=== PATIENT | female | born 1940 | race Caucasian/White ===

== ENCOUNTER 2017-10-08 17:11 | Inpatient (IN) | payer MEDICARE, MEDICAID ==
[~2017-10-08] VITALS: Ht 160 cm; Wt 48.9 kg
--- NOTE | ~2017-10-08 | PR ---
[place], [place] PROGRESS NOTE NAME: NEFTALI CHAMBERLAIN UNIT #: [id number] ROOM: 317 DOCTOR: ROWENA LYONS MD BIRTHDATE: [birth year] DOS: 10/14/2017 CHIEF COMPLAINT: "Oh good morning honey." SUMMARY OF THE VISIT: The patient was interviewed as she sat in a Kerrie chair in the dining area. As her breakfast was presented to her, she thanked me. She was pleasantly confused. She gave short simple responses. She was not agitated, however, and engaged readily in conversation. There was no sedation, somnolence or other side effects noted. MENTAL STATUS: She is alert and oriented to self. I doubt she realizes she is in the hospital and she is certainly not oriented to time. Mood for the most part is euthymic. Affect is appropriate. There are no symptoms of eyal or hypomania. There are no overt auditory or visual hallucinations noted. She does process extremely slow and at times there is a great lag in her response rate. She does have sparsity of thought. There is no spontaneity. Short term memory remains poor. PLAN: I will maintain her current psychotropic regimen as there does seem to be improvements without side effects. We will continue to engage in individual and valencia milieu activity with the ultimate plan to return to the least restrictive environment when psychiatrically stable. ROWENA LYONS MD CM:PNTRANS [id number] ROWENA LYONS MD 10/14/17 0850 interface
--- NOTE | ~2017-10-08 | PR ---
[place], [place] PROGRESS NOTE NAME: NEFTALI CHAMBERLAIN UNIT #: [id number] ROOM: 317 DOCTOR: ROWENA LYONS MD BIRTHDATE: [birth year] DOS: 10/13/2017 CHIEF COMPLAINT: "Help me get out of here. I want to stand up." SUMMARY OF THE VISIT: The patient was interviewed in the dining area where she reclined in a Kerrie chair awaiting breakfast. She again was fixated on me helping her get out of the Kerrie chair and get up on her feet. When I told her, I would not be able to help her, she nodded in approval and just quietly sat there. Nurses report a slight trend in improvement and that her behavior seems to be less problematic and she is responding better to redirection. She remains grossly confused and disoriented, however. MENTAL STATUS: She is alert and oriented to self only. I doubt she knows she is in the hospital and she is certainly not oriented to time. Mood does seem to be trending gradually to improvement. Affect is more appropriate. There is no hypomania or eyal. There are no overt auditory or visual hallucinations. No delusions were voiced. No paranoia seems present. She does process extremely slowly and has sparsity of thought. Short term memory is exceedingly poor. PLAN: Valproic acid level is barely therapeutic at 53.2, but I will maintain her dose at its current level. Maintain her current dose of Exelon patch at 13.3 mg daily and Namenda at 10 mg b.i.d. Continue to engage her in individual and valencia milieu activity with the ultimate plan to discharge to the least restrictive environment when psychiatrically stable. ROWENA LYONS MD CM:PNTRANS 0 2 ROWENA LYONS MD 10/13/1741 interface
--- NOTE | ~2017-10-08 | PR ---
[place], [place] PROGRESS NOTE NAME: NEFTALI CHAMBERLAIN UNIT #: [id number] ROOM: 317 DOCTOR: ROWENA LYONS MD BIRTHDATE: [birth year] DOS: 10/12/2017 CHIEF COMPLAINT: "I want out of this honey, can you get me out of here?" SUMMARY OF THE VISIT: The patient was interviewed as she reclined in a Kerrie chair in the group therapy room. She was very fixated on attempting to stand up and get on her own two feet. She did redirect and calmed as I sat next to her and engaged her in conversation. Her conversation with me for the most part was superficial. At times, her responses were totally inappropriate. Nurses report she continues to be episodically confused and combative and is very hard to redirect. MENTAL STATUS: She is alert and oriented to person. I doubt if she realizes she is in the hospital and she is certainly not oriented to time. Mood still is rather labile and affect is inappropriate. Her responses are short, simple, very derailed and fragmented. There are no overt auditory hallucinations noted. It is unclear if she is experiencing significant delusions or not. Short term memory is exceedingly poor. PLAN: I will maintain her current dose of Exelon patch at 13.3 mg a day and at this time maximize out the Namenda dose to 10 mg b.i.d. I will likewise increase Celexa from 10 to 20 mg at bedtime to impact on decreasing her sexual behavior as well as decreasing her agitation and aggression. We will engage in individual and valencia milieu activity with the ultimate plan to return to the least restrictive environment when psychiatrically stable. ROWENA LYONS MD CM:PNTRANS [id number] ROWENA LYONS MD 10/12/17 1017 interface
--- NOTE | ~2017-10-08 | DS ---
[place], [place] DISCHARGE SUMMARY NAME: NEFTALI CHAMBERLAIN UNIT #: [id number] ROOM: 317 DOCTOR: ROWENA LYONS MD BIRTHDATE: [birth year] DOS: 10/16/2017 CHIEF COMPLAINT: "Yes it is over there, yes hazel hazel yes." HISTORY OF PRESENT ILLNESS: This is a 77-year-old white female who is a resident of [facility]. The patient was admitted to the [facility] unit at [facility] due to increased behavioral issues. The patient has become increasingly sexually inappropriate with both men and women. She has been found stroking and rubbing them inappropriately. Attempts to redirect her have been met with her becoming increasingly agitated. She has attempted to put her hands down male residents' pants. She has also been masturbating publicly. She has been very volatile and hard to redirect. She has not been sleeping well as well with difficulty falling asleep, sleep continuity disturbance and technical account representative awakening. The patient has been increasingly confused and disoriented and as mentioned previously, has been very hard to redirect and her behavior has escalated to the point where she is putting both herself and others at risk. Because of the significant behavioral issues, she is admitted now to rule out organic factors, to stabilize on medication with the ultimate plan to return back to [facility] when stable. PAST MEDICAL HISTORY: Remarkable for coronary artery disease, GERD, hyperlipidemia, hypertension, vitamin B12 deficiency and vitamin D deficiency. SUMMARY OF HOSPITAL COURSE: The patient was admitted to the unit where she was immediately started on Celexa 10 mg a day. Celexa was utilized to decrease both libido as well as decrease agitation. Her Exelon patch was increased from 4.6 to 9.5 mg a day and ultimately stabilized at its maximum dose of 13.3 mg a day. Likewise, this was augmented with Namenda, which was rapidly titrated up to its maximum dose of 10 mg twice daily. She did tolerate the medicines well and continued during the early part of her stay to have inappropriate intrusive behavior. Celexa was ultimately increased then to 20 mg a day with good affect. Because of her impulsivity, Depakote was added to decrease her impulsivity and decrease her mood lability. Depakote was started at 250 mg 3 times a day; however, on October 13, a level was mildly therapeutic at only 53.2 and because she was still exhibiting some intrusive behavior and impulsivity, the dose was increased to 250 mg twice daily and 500 mg at bedtime. She tolerated the increase well and with this increase did seem to have a significant improvement in her overall level of being able to redirect. The patient remained grossly confused throughout her stay, but was able to be redirected more readily without agitation or aggression. Her sexually inappropriate behavior completely abated. The patient tolerated the medication regimen well and was discharged back to [facility] on October 16. MENTAL STATUS AT DISCHARGE: The patient was alert and oriented to person, not to place or time. Mood was significantly trending towards euthymia. Affect was much more appropriate. There are no symptoms of eyal or hypomania. There are no auditory or visual hallucinations. No delusions, no paranoia. Short-term memory was poor, intermediate, and long-term were relatively intact. [place], [place] DISCHARGE SUMMARY NAME: NEFTALI CHAMBERLAIN UNIT #: [id number] ROOM: 317 DOCTOR: ROWENA LYONS MD BIRTHDATE: [birth year] FINAL DIAGNOSES ON DISCHARGE: Major depression, recurrent and impulse control disorder, not otherwise specified. DISPOSITION: The patient is being discharged back to [facility]. I will follow her upon her return to that facility. ROWENA LYONS MD CM:ESTRADA 1 ROWENA LYONS MD 10/16/17 0835 interface
--- NOTE | ~2017-10-08 | PR ---
[place], [place] PROGRESS NOTE NAME: NEFTALI CHAMBERLAIN UNIT #: [id number] ROOM: 317 DOCTOR: ROWENA LYONS MD BIRTHDATE: [birth year] DOS: 10/10/2017 CHIEF COMPLAINT: "Oh hi there honey!" SUMMARY OF THE VISIT: The patient was interviewed as she was resting quietly in bed. She did awake and engaged in brief superficial conversation. She thanked me for visiting. Otherwise, she tended to be somewhat derailed and was not able to fully grasp my conversation. She seemed rather perplexed and bewildered but was not agitated in any way. Nurses report similar behavior and that she is grossly confused, but has not been engaging in the sexually inappropriate behavior that was so prevalent at her long-term care facility. She seems to be outwardly tolerating the current medication regimen well and I see no adverse events due to the medications themselves. MENTAL STATUS: She is alert and oriented to person. It is doubtful if she realizes she is in the hospital and she is not oriented to time. Mood does seem to be fairly euthymic. Affect appropriate. She is rather disjointed and confused in her responses, often times responding inappropriate to the questions asked of her. There was no eyal or hypomania, likewise there were no overt auditory or visual hallucinations noted. No delusions or paranoia. She does process slowly and has thoughts and short term memory is exceedingly poor. PLAN: I will increase Namenda from 5 mg b.i.d. to 10 mg in the morning and 5 mg at bedtime with an ultimate target dose of 10 mg b.i.d. in mind. I will maximize the dose of Exelon patch now from 9.5 to 13.3 mg a day in order to impact positively on ADL, behavior and cognition. We will engage her in individual and valencia milieu activity with the plan to return back to [facility] when psychiatrically stable. ROWENA LYONS MD CM:PNTRANS [id number] ROWENA LYONS MD 10/10/17 1254 interface
--- NOTE | ~2017-10-08 | PR ---
[place], [place] PROGRESS NOTE NAME: NEFTALI CHAMBERLAIN UNIT #: [id number] ROOM: 317 DOCTOR: ROWENA LYONS MD BIRTHDATE: [birth year] DOS: 10/15/2017 CHIEF COMPLAINT: "Good morning." SUMMARY OF THE VISIT: The patient was interviewed in the dining area where she was reclining in a Kerrie chair waiting for her breakfast tray. She was alert, oriented to self only. As I approached, she did engage in superficial conversation. She offered no complaints. She was fairly pleasant. Her responses tended to be short and simple, at times inappropriate. There was no incidence of agitation or aggression or mood lability. She also did not exhibit any side effects from the medications themselves. MENTAL STATUS: She is alert and oriented to self at least. It is unclear if she realizes she is in the hospital and she is not oriented to time. Mood does seem to be gradually trending towards euthymia and affect is more appropriate. There are no symptoms of eyal or hypomania. There are no overt auditory or visual hallucinations. She does process conversation very slowly and has a tendency to have sparse thoughts. Short term memory is poor. PLAN: I will maintain her current psychotropic regimen. I will recheck a valproic acid level in the a.m. to ensure that it is therapeutic. We will plan to discharge to the least restrictive environment when psychiatrically stable. ROWENA LYONS MD CM:PNTRANS [id number] ROWENA LYONS MD 10/15/17 1009 interface
--- NOTE | ~2017-10-08 | WRIGHTHP ---
[place], [place] PATIENT HISTORY AND PHYSICAL EXAM NAME: NEFTALI CHAMBERLAIN UNIT #: [id number] ROOM: [facility] DOCTOR: ROWENA LYONS MD BIRTHDATE: [birth year] DOS: 10/09/2017 CHIEF COMPLAINT: "Yes it is over there, hazel, hazel, yes." HISTORY OF PRESENT ILLNESS: This is a 77-year-old white female who was admitted here from [facility]. The patient has had increased behavioral issues. She has been sexually inappropriate with both men and women. She has been found stroking and rubbing them inappropriately. She has attempted to put her hands down individuals' pants. She has also been masturbating publicly. She has also been increasingly volatile and difficult to redirect. Her sleep has been disturbed with difficulty falling asleep, sleep continuity disturbance and preventive medicine officer awakening. She has been increasingly confused and disoriented. She is admitted now to rule out organic factors to attempt to stabilize on medication with the ultimate plan to return back to [facility]. PAST MEDICAL HISTORY: Remarkable for coronary artery disease, GERD, hyperlipidemia, hypertension, vitamin B12 deficiency, vitamin D deficiency. MENTAL STATUS: The patient is alert and oriented to self only. This morning, she was nonsensical and very disoriented. Her responses had nothing to do with the questions asked of her and she tended to ramble. At times, it was word salad. I could not fully test memory, but she does seem to be grossly confused. DIAGNOSIS: Major depression, recurrent with psychotic features and impulse control disorder. PLAN: I will go ahead and start Celexa 10 mg at bedtime to decrease libido. I will increase Exelon patch from 4.6 to 9.5 mg a day in an effort to impact ADLs, behavior and cognition. Maintain Namenda at this point, but I will titrate both of these drugs up to their maximum doses. We will maintain Depakote at this point to decrease mood lability and check a valproic acid level over the weekend. We will engage in individual and valencia milieu activity with the plan to return back to [facility] when stable. [place], [place] PATIENT HISTORY AND PHYSICAL EXAM NAME: NEFTALI CHAMBERLAIN UNIT #: [id number] ROOM: 317 DOCTOR: ROWENA LYONS MD BIRTHDATE: [birth year] ROWENA LYONS MD CM:HISPHYS:PATIENT HISTORY AND PHYSICAL EXAMINATION [id number] ROWENA LYONS MD 10/09/17 1146 interface
[2017-10-08] MEDS ORDERED: VITAMIN C500 M4 PO (17:42)
[2017-10-08] MEDS ORDERED: ASPIRIN CHEWABL81 MG PO (17:44)
[2017-10-08] MEDS ORDERED: ATORVASTATIN CA10 M1 PO (17:45)
[2017-10-08] MEDS ORDERED: DEPAKOTE SPRIN125 MG PO (17:48)
[2017-10-08] MEDS ORDERED: Depakote Sprin125 MG PO (17:50)
[2017-10-08] MEDS ORDERED: EXELON1 EACH T (17:51)
[2017-10-08] MEDS ORDERED: NAMENDA-14 PO (17:52)
[2017-10-08] MEDS ORDERED: OMEPRAZOLE D/R20 MG PO (17:52)
[2017-10-08] MEDS ORDERED: OYSTER SHELL C1 EAC1 PO (17:54)
[2017-10-08] MEDS ORDERED: KLOR-CON M2020 ME1 PO (17:56)
[2017-10-08] MEDS ORDERED: VITAMIN B-12500 MC3 SL (17:59)
[2017-10-08] MEDS ORDERED: VITAMIN D-32000 UNI1 PO (18:00)
[2017-10-08] MEDS ORDERED: MIRALAX POWDER255 G1 PO (18:01)
--- NOTE | 2017-10-08 20:00 | NUR ---
NEFTALI CHAMBERLAIN a 77 year old F admitted via wheel chair from the ADMITTING as a voluntary admission. Arrived on unit at 1999. ALLERGIES: MORPHINE. Vital signs are: 98.6-95-18 116/88. The POA,Tutu Chamberlain, gave verbal consent for the following forms with stated understanding: Authorization For The Release of Medical Information, Clothing List, Consent to Voluntary Admission and Hospitalization, Consent and Release Forms/Receipt of Rights, Acknowledgement of Advance Directive Information, Behavioral Health Consent Form, and Informed Consent of Medications. Admitted under the services of Dr. SERENA FERGUSON,[facility]. A search was conducted and hazardous articles were removed. Client was oriented to the unit. CRISTOPHER DAY
[2017-10-08 20:23] VITALS: BP 116/88
--- NOTE | 2017-10-08 20:45 | NUR ---
UNABLE TO COMPLETE ASSESSMENT DUE TO PTS COGNITIVE IMPAIRMENT. PT UNABLE TO ANSWER QUESTIONS. NONSENSICAL SPEECH NOTED. PT IS CONFUSED AND UNABLE TO STATE HER OWN NAME. INTERACTIVE WITH PEERS. PT WILL ATTEMPT TO TALK TO A NEARBY PEER ABOUT NONSENSICAL SUBJECTS. SOFT SPOKEN AND SLURRED AT TIMES. WILL ALSO ATTEMPT TO GRAB CLOTHES OR CHAIR OF A NEARBY PEER. GAIT UNSTEADY. PT ASSISTED X2 STAFF. RESPIRATIONS EASY AND NON LABORED. Q15 MINUTE SAFETY CHECKS INITIATED AND FALL PRECAUTION INITIATED. UNABLE TO COMPLETE MINI MENTAL EXAM, CRISIS PREVENTION PLAN, DEPRESSION AND SUICIDE ASSESSMENTS. MEDICATION COMPLIANT WITHOUT DIFFICULTY. SEE [facility] FLOWS[facility] FOR SPECIFIC MONITORING.
[2017-10-08] MEDS ORDERED: THERA M PLUS T1 EACH PO (21:18)
--- NOTE | 2017-10-08 21:39 | NUR ---
DR SERRANO RETURNED CALL AND EXPLAINED TO CALL HOSPITALIST CELL NUMBER ONE FOR NEW ADMITS. EXPLAINED TO DR SERRANO WHEN ANOTHER NURSE DID THIS LAST WEEK WE WERE TOLD TO CALL RESIDENT HOSPICE COMMUNITY LIAISON.
--- NOTE | 2017-10-08 21:39 | NUR ---
CALL MADE TO RESIDENT AUTO PAINTER. DR SERRANO ANSWERED PHONE. UPDATED DR SERRANO OF PT ARRIVAL ON TO UNIT. DR SERRANO STATED TO PUT CONSULT UNDER DR LUNA.
--- NOTE | 2017-10-08 22:00 | NUR ---
DR SERRANO AND DR Greg LEWIS WAS ON UNIT. EXPLAINED TO DR LEWIS ABOUT CALLING DR LUNA AND BEING TOLD TO CALL RESIDENT AND DR LEWIS STATED TO CALL HOSPITALIST CELL NUMBER 1. DR SERRANO ASSESSED PT AT THIS TIME.
[2017-10-08 23:09] VITALS: BP 116/88
--- NOTE | 2017-10-09 02:25 | NUR ---
WOUND ASSESSMENT COMPLETED. NO AREAS OF CONCERN NOTED. BRUISING NOTED TO RIGHT FORARM AND AROUND RIGHT EYE. THIS IS REPORTEDLY FROM A FALL AT THE NURSING FACILITY PRIOR TO ADMISSION.
--- NOTE | 2017-10-09 03:03 | NUR ---
24 HR chart check completed.
--- NOTE | 2017-10-09 06:50 | NUR ---
PT DID NOT SLEEP THIS SHIFT. NO S/S OF DISTRESS NOTED.
[2017-10-09 07:39] VITALS: BP 140/82
[2017-10-09 07:48] LABS: ALBUMIN 3.9 gm/dl (3.1-4.5); BUN 25 mg/dl (7-24); CHLORIDE 111 mmol/L (98-107); CHOLESTEROL 155 mg/dL (<200); CREATININE 0.67 mg/dL (0.55-1.02); POTASSIUM 3.6 mmol/L (3.5-5.1); SGOT/AST 22 IU/L (3-35); SGPT/ALT 28 U/L (12-78); SODIUM 146 mmol/L (136-145); TOTAL PROTEIN 7.1 gm/dL (6.4-8.2); TRIGLYCERIDES 59 mg/dl (<150); VLDL CHOLESTEROL 12 mg/dL (6-40)
[2017-10-09 07:49] LABS: ALKALINE PHOSPHATASE 76 U/L (45-117); HDL CHOLESTEROL 67 mg/dl (40-60); LDL CHOLESTEROL 76 mg/dL (9-159)
--- NOTE | 2017-10-09 08:48 | NUR ---
SW faxed updated info for facility to update "changhe in condition" form.
--- NOTE | 2017-10-09 09:05 | NUR ---
PHYSICAL THERAPY PAtient evaluatd on 3, full evaluation to follow. Continue with PT as per plan of care with fall, unit three, mod (A) x 2 + and alarm precautions. Return to prior living facility with PT prn to return to PLOF. PAtient is mdoerate coplexity via chart review, tests and and evaluation: [id number]. Thank you for this referral; Sarah Singer,PT
--- NOTE | 2017-10-09 11:19 | NUR ---
Occupational Therapy evaluation completed on 3 with full eval to follow. Precautions include impaired cognition, difficulty following simple 1 step commands, moderate complexity level 39184, fall risk, positioned in recliner w/ laptray. Recommend OT per POC to address feeding, gromin,xfers, sit balance and w/c mobilty with SNF upon d/c. Thank you for this referral. Tiffanie Kline OTR/l
--- NOTE | 2017-10-09 13:01 | NUR ---
Goals/Exercise/Reminiscing Patient was in attendence for group but did not participate. Patient was very confused trying to get out of her chair and asking this AC for help to get out. Patient not easily redirected if at all. Patient showed no sign of aggression while in group
--- NOTE | 2017-10-09 15:33 | NUR ---
PT IS PLEASANTLY CONFUSED PER USUAL. SPEECH IS NON SENSICAL DURING INTERACTIONS WITH PATIENT. NO AGGRESSIVE OR COMBATIVE BEHAVIORS NOTED. MEDICATION COMPLIANT WITH MUCH ENCOURAGEMENT.
[2017-10-09 15:38] LABS: BILIRUBIN NEGATIVE (NEGATIVE); BLOOD NEGATIVE (NEGATIVE); CLARITY CLEAR (CLEAR); COLOR YELLOW (YELLOW); GLUCOSE NEGATIVE (NEGATIVE); KETONE NEGATIVE (NEGATIVE); LEUKO ESTERASE NEGATIVE (NEGATIVE); NITRITE NEGATIVE (NEGATIVE); PH 5.5 (5.0-9.0); SPECIFIC GRAVITY 1.025 (1.005-1.030); UROBILINOGEN 0.2 E.U./dl (0.2-1.0)
[2017-10-09 15:49] LABS: WBC 0-2 wbc/hpf (0-5)
[2017-10-09 15:50] LABS: BACTERIA TRACE
[2017-10-09 20:10] VITALS: BP 129/62
--- NOTE | 2017-10-09 21:30 | NUR ---
PATIENT COOPERATIVE AND MEDICATION COMPLIANT. PATIENT CONTINUES FALL AND SEIZURE PRECAUTIONS. PATIENT CONFUSED. NO HALLUCINATIONS OR DELUSIONS. NO HOMICIDAL OR SUICIDAL IDEATIONS. PATIENT IN GERICHAIR AND NO SEXUAL PREOCCUPATION OBSERVED.
--- NOTE | 2017-10-10 06:33 | NUR ---
24 HR chart check completed.
[2017-10-10 07:56] VITALS: BP 118/63
--- NOTE | 2017-10-10 12:00 | NUR ---
PATIENT HAS BEEN SLEEPING MOST OF THE SHIFT. AWAKE FOR LUNCH, ENCOURAGED PO INTAKE WITH MINIMAL EFFECT. TAKING FLUIDS WELL. MT FEEDING PT, ATE 5% OF LUNCH. SPEECH IS NON SENSICAL. ACUTE CONFUSION NOTED WITH ST/LT MEMORY DEFICITS. REFUSED ALL MEDICATIONS AFTER MULTIPLE ATTEMPTS. UNABLE TO COMPLETE MEDICATION EDUCATION D/T CONFUSION. NO HALLUCINATIONS, DELUSIONS, OR BEHAVIORS NOTED. MOOD IS STABLE WIT FLAT AFFECT. SEE [facility] FLOWSHEET FOR SPECIFIC MONITORING. NO SEXUALLY INAPPROPRIATE BEHAVIORS. CALM AND COOPERATIVE WITH STAFF AND HOC. ALL NEEDS ANTICIPATED BY STAFF.
--- NOTE | 2017-10-10 16:58 | NUR ---
PATIENT TOOK EVENING MEDS WITH MUCH ENCOURAGEMENT. INCREASED CONFUSION NOTED. NON SENSICAL SPEECH.
[2017-10-10 20:00] VITALS: BP 136/61
--- NOTE | 2017-10-10 20:30 | NUR ---
UNABLE TO SIT STILL IN CHAIR. TEARING UP MAGAZINES AND UNABLE TO REDIRECT. TALKING TO UNSEEN PERSONS. REACHING OUT AT STAFF AND PEERS THAT WALK BY TRYING TO TOUCH THEM. MEDICATIONS GIVEN WITH MUCH ENCOURAGEMENT. WORDS GARBLES WITH ONLY A FEW THAT ARE UNDERSTANDABLE. WILL MONITOR
--- NOTE | 2017-10-11 06:00 | NUR ---
aggrissive with am care. punching, scratching and kicking staff. assist of 4 to get her changed and dressed
--- NOTE | 2017-10-11 06:44 | NUR ---
spit out over half of her medications. swinging at staff.
[2017-10-11 07:53] VITALS: BP 132/61
--- NOTE | 2017-10-11 16:02 | NUR ---
PT IS ALERT AND CONFUSED THIS SHIFT WITH PERIODS OF RESTLESSNESS. SPEECH IS NON SENSICAL DURING INTERACTIONS WITH PT. NO HALLUCINATIONS OR DELUSIONS NOTED. UNABLE TO COMPLETE FULL MENTAL STATUS ASSESSMENT D/T CONFUSION AND SPEECH. MEDICATION COMPLIANT WITH MUCH ENCOURAGEMENT. NAPS INTERMITTENTLY THROUGHOUT THE SHIFT. WILL CONTINUE Q15 MIN OBSERVATION CHECKS PER ORDERS. NO COMBATIVE BEHAVIORS NOTED.
--- NOTE | 2017-10-11 16:57 | NUR ---
REFUSED EVENING MEDICATIONS AT THIS TIME.
[2017-10-11 20:00] VITALS: BP 113/68
--- NOTE | 2017-10-11 20:48 | NUR ---
HITTING AND PUNCHING AT STAFF DURING MEDICATION PASS. TOOK APPROX 1/2 OF ORDERED MEDICATIONS. REFUSED MIRALAX. WORD SALAD DURING ANGRY OUTBURST. WILL CONTINUE EMOTIONAL SUPPORT
--- NOTE | 2017-10-11 21:00 | NUR ---
ACTIVELY HALLUCINATING. CALLING AND REACHING FOR UNSEEN PERSONS. ANYTIME STAFF COMES CLOSE TO CLIENT SHE ATTEMPTS TO PINCH AND SCRATCH. KEEPING SAFE DISTANCE.
--- NOTE | 2017-10-11 22:22 | NUR ---
REMAINS UP IN CHAIR INCREASED AGGRESSION NOTED WHEN APPROACHED. UNABLE TO PROVIDE PM OR ORAL CARE AT THIS TIME
--- NOTE | 2017-10-11 22:58 | NUR ---
REMAINS AWAKE IN CHAIR. LESS AGGITATED AND SMILING MORE. WORD SALAD CONTINUES
--- NOTE | 2017-10-12 01:31 | NUR ---
24 HR chart check completed.
--- NOTE | 2017-10-12 04:05 | NUR ---
CAT NAPPING THROUGHOUT SHIFT, HAS NOT SLEPT MORE THAN 20 MINUTES AT A TIME. REMAINS IN VIEW OF NURSING STATION
--- NOTE | 2017-10-12 05:03 | NUR ---
COMBATIVE AND ARGUMENTATIVE WITH COASTAL TUG MATE DURING LAB DRAW. ASSIST OF 2 TO PREVENT INJURY TO CLIENT AND STAFF
--- NOTE | 2017-10-12 05:20 | NUR ---
UNABLE TO SHOWER OR BED BATH DUE TO INCREASED AGGITATION AND VIOLENCE
[2017-10-12 05:29] LABS: BUN 27 mg/dl (7-24); CHLORIDE 110 mmol/L (98-107); CREATININE 0.61 mg/dL (0.55-1.02); SODIUM 144 mmol/L (136-145)
--- NOTE | 2017-10-12 06:16 | NUR ---
AM MEDICATIONS HELD DUE TO INCREASED AGGITATION
--- NOTE | 2017-10-12 08:07 | NUR ---
PHYSICAL THERAPY Mamie seen this AM 1:1 for her physical therapy session. Pt was up in her gerichair. Wheeled Pt out into her richardson and with much verbal cueing to transfer sit to stand and up on her third try standing with MAX A X 1. Pt would not gait at this time, sit/stand X 3, MAX A X 1. Last time gait 42' X 1, MOD/MAX A X 1, with much verbal cueing for gait balance safety, Pt back up in her gerichair, tray up and taken up for her breakfast. Yefriher very hard to hear and understand and not understand cues for her Ex at this visit. MATT BOONE SAWDUST MACHINE OPERATOR.
--- NOTE | 2017-10-12 08:10 | NUR ---
10/09/17 Afternoon Coping Skills Patient did attend group but did not participate. Patient was confused but not aggressive during group
[2017-10-12 08:18] VITALS: BP 151/77
--- NOTE | 2017-10-12 09:41 | NUR ---
PATIENT SEATED IN W/C IN DAY ROOM. PATIENT REPEATEDLY VERBALIZING "HEY" AND REACHING OUT. UNABLE REDIRECT. WILL TRY BACK LATER DATE. SHONDA STAHL/Shakir
--- NOTE | 2017-10-12 10:15 | NUR ---
Mamie has been noted to exhibit some irritability and restlessness this morning. When attempting to administer medications she pushed staff away and spit them out. Attempted to administer po ativan as prescribed prn, however, she was unreceptive to taking it. Confusion is noted and she is oriented to person only. Attempted to strike milieu this morning when attempts were made to feed her. Will continue to monitor and encourage compliance.
--- NOTE | 2017-10-12 12:20 | NUR ---
PATIENT SEEN 1:1 OT THIS DATE 15 MINUTES. PATIENT IDENTIFIED BY NAME AND DATE OF WRIST BAND. PATIENT COMPLETED FEEDING DEPENDENT WITH LIMITED PARTICIPATION.PATIENT UNABLE TO FOLLOW SIMPLE ONE STEPS COMMANDS AND UNABLE IDENTIFY PROPER USE UTENSILS AND CUPS. PATIENT DEOMONSTRATED INCREASE PARTICIPATION FINGER FOODS MAX A HOWEVER REFUSED FOOD LOADED ON UTENSILS LIMITED INTAKE USE CUP/STRAW. SHONDA VITO FAVIO/Shakir
--- NOTE | 2017-10-12 13:26 | NUR ---
Goals/Exercise/Positive Thoughts & Affirmations Patient was in attendence during group but did not participate. For the most part of group patient was asleep
--- NOTE | 2017-10-12 14:20 | NUR ---
Continues to exhibit restlessness and is not receptive to verbal intervention provided by staff. Frequently attempts to grab @ staff and visitors and is not receptive to direction from staff. Marked confusion is noted and she is oriented to person only. Attempts to administer medications are unsuccessful as she continues to turn her head away and spit in spite of education provided by staff. During frequent 1:1 interactions, she responds irrelevantly and has marked difficulty processing any information. No overt s/s of sensory disturbances are noted. Appetite is poor and she has required much encouragement to maintain an adequate fluid and nutritional intake. Requires maximal assistance with ADL's and is unable to complete simple tasks. Incontinuent of urine and stool. Hygiene measures were provided by staff. Refer to [facility] flowsheet for specific monitoring.
--- NOTE | 2017-10-12 15:24 | NUR ---
SW missed pt son's Tutu pc, attempted to reach Tutu again, left vm. Did leave message about Dr. clark looking at pt. returning to [facility] by end of week. Also notified jesus Jackson tentative d/c date. no pre-cert needed.
--- NOTE | 2017-10-12 15:30 | NUR ---
Positive Self-Talk Patient did not attend group this afternoon. Patient was asleep in her room
--- NOTE | 2017-10-12 17:51 | NUR ---
Anxiety level and restlessness noted to increase as well as agitation. Mamie previously spit out po ativan when this was offered. Ativan 1 mg IM was administered per policy for IM injections @ 1330. Ativan effective in calming Mamie. She has been noted to nap in gerichair and restlessness and agitation have subsided.
[2017-10-12 20:00] VITALS: BP 104/83
--- NOTE | 2017-10-12 20:17 | NUR ---
TRIED TO GET CLIENT TO EAT PUDDING TO SEE IF SHE WOULD TAKE MEDICATION. CLIENT SPIT OUT PUDDING. WILL TRY AGAIN LATER
--- NOTE | 2017-10-12 20:57 | NUR ---
PLACED IN BED FOR COMFORT BED AND BODY ALARM IN PLACE.
--- NOTE | 2017-10-12 23:45 | NUR ---
REFUSED PM CARE INCLUDING ORAL CARE
--- NOTE | 2017-10-13 03:32 | NUR ---
24 HR chart check completed.
[2017-10-13 08:02] VITALS: BP 143/54
--- NOTE | 2017-10-13 09:41 | NUR ---
PATIENT SEATED IN PIERRE CHAIR REACHING OUT AND UNABLE TO FOLLOW SIMPLE STEP COMMANDS. MILIEU REPORTS PATIENT WAS AGGITATED THIS MORNING. SHONDA SOTO
--- NOTE | 2017-10-13 10:14 | NUR ---
ISABEL rec'd pc from pt's son, Tutu, notified him of possible d/c or thursday. Tutu states he was in to see pt. last nite. no questions/concerns from son to SW.
--- NOTE | 2017-10-13 11:40 | NUR ---
PHYSICAL THERAPY Mamie seen this AM 1:1 for her therapy session and just not as good as yesterday therapy session. Pt was up in the day room in her gerichair and wheeld out in to her richardson. With "much" verbal cueing for transfer from sit to stand with MAX A X 1, today X 3 standing sessions with MAX A X 1, with Mamie only taking 2-3 steps and would go down with this. I dont know if Pt was medicated and just out of it this morning session. Pt wheeled back to the day room, body alarm on, tray up. MATT BOONE TENTERING MACHINE OFF BEARER.
--- NOTE | 2017-10-13 11:52 | NUR ---
Holiday remenissing, orientation and goals Patient present in activity room however unable to engage patient due to confusion. Patient tearful or sleeping throughout group.
--- NOTE | 2017-10-13 15:13 | NUR ---
Coping skills Patient in activity room during group however did not actively participate. Patient reaching out at other and attempting to grab items from them. Patient moved to quieter area.
--- NOTE | 2017-10-13 17:52 | NUR ---
PT ALERT TO PERSON ONLY. PT REFUSED AM MEDS, SPITTING THEM OUT, UNABLE TO PROVIDE MED EDUCAITON D/T INCREASED CONFUSION. NO HALLUCINATIONS OR DELUSIONS NOTED. NO SUICIDAL/HOMICIDAL IDEATIONS NOTED. PT ANGRY/IRRITABLE AT TIMES, BECOMING COMBATIVE WITH CARE AND MED ADMINISTRATION. PT INCONTINENT OF BOWEL AND BLADDER, CARE PROVIDED NEEDED. PLAN IS TO ENCOURAGE MED COMPLIANCE, MONITOR PT BEHAVIORS ON Q156 MIN SAFETY CHECKS.
[2017-10-13 20:14] VITALS: BP 106/74
--- NOTE | 2017-10-14 03:05 | NUR ---
24 HOUR CHART CHECK COMPLETED.
--- NOTE | 2017-10-14 05:05 | NUR ---
PATIENT IS ALERT AND CONFUSED THIS SHIFT WITH PERIODS OF RESTLESSNESS. FREQUENTLY ATTEMPTS TO PULL OFF ALARM, NEEDING CONSTANT REDIRECTION FROM STAFF. PT IS ANGRY AND IRRITABLE AT TIMES. NO COMBATIVE BEHAVIOR NOTED SO FAR THIS SHIFT. SPEECH IS NON SENSICAL DURING INTERACTIONS WITH PATIENT. NO HALLUCINATIONS OR DELUSIONS NOTED. REFUSED HS DOSE OF MIRALAX AFTER X3 ATTEMPTS. UNABLE TO PROVIDE MED EDUCATION D/T CONFUSION. COMPLAINT WITH REMAINING HS MEDICATIONS WITHOUT DIFFICULTY WHEN CRUSHED AND PLACED IN ICE CREAM. OBSERVED ON Q 15 MIN CHECKS TO HAVE SLEPT THROUGHOUT THE NIGHT WITH NO AWAKENINGS. NO PHYSICAL COMPLAINTS VOICED. PATIENT CURRENTLY IN BED WITH EYES CLOSED. RESPIRATIONS EASY AND REGULAR NO SIGNS OR SYMPTOMS OF DISTRESS NOTED. REFER TO [facility] FLOWSHEET FOR SPECIFIC MONITORING.
[2017-10-14 07:58] VITALS: BP 143/62
--- NOTE | 2017-10-14 08:58 | NUR ---
PHYSICAL THERAPY Mamie seen this AM 1:1 for her therapy treatment. Pt was up in the day room, wheeled out into the richardson. Pt needing nuch verbal cueing to stand. Transfer sit/stand with MAX A X 1, X 2, with Mamie fighting her treatment with standing only, did not gait. MATT BOONE VICE PRESIDENT PAYMENT.
--- NOTE | 2017-10-14 09:16 | NUR ---
CHAO QURESHINP ON UNIT TO ASSESS PT.
--- NOTE | 2017-10-14 09:44 | NUR ---
DEV FROM [facility] HERE TO ASSESS PT, PER DEV SHE WILL PASS ON THAT D/C IS PLANNED FOR FRI.
--- NOTE | 2017-10-14 11:53 | NUR ---
Goal, orientation and trivia Patient present in activity room however difficulty participating due to dementia and confusion.
--- NOTE | 2017-10-14 13:17 | NUR ---
PT ALERT TO PERSON ONLY. PT TOOK HALF OF AM MEDS, CRUSHED IN PATRIA PUDDING, UNABLE TO PROVIDE MED EDUCATION D/T INCREASED CONFUSION. PT RESTLESS AND ANXIOUS AT TIMES. NO HALLUCINATIONS OR DELUSIONS NOTED. NO HOMICIDAL/SUICIDAL THOUGHTS NOTED. PT INCONTINENT OF BOWEL AND BLADDER, CARE PROVIDED NEEDED. PLAN IS TO ENCOURAGE MED COMPLIANCE.
--- NOTE | 2017-10-14 15:09 | NUR ---
Games and relaxation Patient present in activity room during group. Patient grabbing at peers throughout group. Attempted to redirect with little success.
[2017-10-14 20:17] VITALS: BP 145/86
--- NOTE | 2017-10-14 23:18 | NUR ---
PATIENT ALERT TO PERSON, CONFUSED. PATIENT IN GERICHAIR IN DINING AREA RESTLESS AT TIME. PATIENT MEDICATION COMPLIANT AND TAKING MEDICATIONS CRUSHED IN CHOCOLATE ICE CREAM. NO HALLUCINATIONS OR DELUSIONS. PATIENT INCONTINENT OF BOWEL AND BLADDER. PATIENT TREATMENT PLAN WITH FOCUS AGGRESSION RELATED TO MAJOR DEPRESSION RECURRENT WITH PSYCHOTIC FEATURES AND FALL RISK. PATIENT CONTINUES TO FOLLOW FALL PRECAUTIONS PER POLICY AND IS TAKING ALL MEDICATION PRESCRIBED. PATIENT PLEASANT AND COOPERATIVE WITH CARE
--- NOTE | 2017-10-15 04:01 | NUR ---
24 HR chart check completed.
--- NOTE | 2017-10-15 06:12 | NUR ---
Q 15 MINUTE SAFETY CHECKS MAINTAINED. SLEPT > 7 HOURS THROUGHOUT SHIFT. VOICES NO COMPLAINTS OF PAIN OR DISCOMFORT AT THIS TIME
[2017-10-15 08:12] VITALS: BP 141/71
--- NOTE | 2017-10-15 09:50 | NUR ---
PHYSICAL THERAPY Mamie seen this AM 1:1 for her therapy session, Pt was up in the day room. Wheeled pt out into the for her treatment. With much verbal cueing for Pt's transfer from sit to up standing with walker with MAX A X 1, X 3, with sitting rest after each stand to tolerance. Mamie would not take a step at this time just only stand. Wheeled back to the day room, body alarm on. MATT BOONE TRAIN CONTROLLER.
--- NOTE | 2017-10-15 10:32 | NUR ---
PT IS SLEEPY THIS MORNING. PLEASANTLY CONFUSED PER USUAL. ALL NEEDS ANTICIPATED BY STAFF D/T CONFUSION AND NON SENSICAL SPEECH MOST OF THE TIME. NO HALLUCINATIONS, DELUSIONS, OR BEHAVIORS NOTED. MEDICATION COMPLIANT WITHOUT DIFFICULTY. LIMITED INTERACTIONS WITH PEERS AND STAFF. WILL CONTINUE WITH Q15 MIN OBSERVATIONS CHECKS PER ORDERS. REFUSED BREAKFAST THIS MORNING. SEE [facility] FLOWSHEET FOR SPECIFIC MONITORING.
--- NOTE | 2017-10-15 11:21 | NUR ---
ISABEL spoke with Renetta of [facility] liaison that pt will be d/c'ed tomorrow at 11:00. ISABEL left vm for son neda Cam, in regards to pt. d/c time for tomorrow at 11am. pt to be transported via [facility].
--- NOTE | 2017-10-15 11:32 | NUR ---
Games,Exercise and Trivia Patient was in attendence for group this norning but did not participate. Patient was in her chair asleep
--- NOTE | 2017-10-15 15:34 | NUR ---
Day Reminiscing Patient was in attendence for group but did not participate. Patient was asleep in her chair
--- NOTE | 2017-10-15 17:00 | NUR ---
PATIENT HAS BEEN SLEEPING MOST OF THE DAY, UP FOR MEALS WITH MUCH ENCOURAGEMENT FROM STAFF. PATIENT WOKE UP AT 1630 AND CRYING OUT. INCONTINENCE CARE PROVIDED VIA 2 RN'S. DURING HOC, PT NOTED TO BE STRIKING OUT, ATTEMPTING TO BITE AND SCARTCH STAFF. APPETITE REMAINS POOR, PT HAD 5% OF LUNCH AFTER REFUSING BREAKFAST. ATE 2 SMALL PUDDING CUPS, 1 SMALL APPLESAUCE, 1 SHERBERT, AND DRANK 75% OF EVENING BOOST SUPPLEMENT. PT CRYING OUT WITHOUT TEARS AND MOANING OUT. UNABLE TO EXPRESS NEEDS, WANTS, OR PAIN. S/S OF PAIN NOTED WITH NONVERBAL QUES. PRN TYLENOL GIVEN AT THIS TIME. WILL CONTINUE TO MONITOR FOR EFFECTIVENESS. ADMINISTERED ALL OTHER SCHEDULED EVENING MEDICATIONS WELL WITH MUCH ENCOURAGEMENT.
[2017-10-15 19:44] VITALS: BP 106/74
--- NOTE | 2017-10-16 01:04 | NUR ---
24HR CHART CHECKS COMPLETE
--- NOTE | 2017-10-16 01:08 | NUR ---
PT ORIENTED TO NAME ONLY. LETHARY PERSISTED INTO THIS SHIFT. PT SPIT OUT MEDICATIONS AND REFUSED FLUIDS DURING THIS SHIFT. PT RESPONDED TO STAFF WITH ONE WORD ANSWERS, STRUGGLING TO COMPREHEND SIMPLE COMMANDS. UNABLE TO FULLY ASSESS FOR SI/HI, HALLUCINATIONS DUE TO CURRENT MENTAL STATUS. CONTINUE TO MONITOR FOR CHANGES IN BEHAVIOR. REFER TO FLOWSHEET FOR ADDITIONAL INFO.
--- NOTE | 2017-10-16 06:47 | NUR ---
PT SLEPT >10HRS WITH NO INTERRUPTIONS.
[2017-10-16 07:49] VITALS: BP 128/81
[2017-10-16] MEDS ORDERED: EXELON13.3 MG/21 T (08:07)
[2017-10-16] MEDS ORDERED: DIVALPROEX SOD125 M1 PO ×2 (08:07)
[2017-10-16] MEDS ORDERED: CITALOPRAM HYDR20 MG PO (08:07)
[2017-10-16] MEDS ORDERED: MEMANTINE HCL10 MG PO (08:07)
--- NOTE | 2017-10-16 08:29 | NUR ---
CHAO MARTIN CNP NOTIFIED OF PATIENT'S DISCHARGE TODAY.
--- NOTE | 2017-10-16 08:32 | NUR ---
rec'd pc from Renetta requesting a copy of the pasrr. pasrr faxed.
--- NOTE | 2017-10-16 09:28 | NUR ---
REFUSED MEDICATIONS, SPTI OUT MEDS.
--- NOTE | 2017-10-16 09:55 | NUR ---
PHYSICAL THERAPY Patient seen this am 1:1 for therapy sitting up in recliner chair with lap tray within activity room upon therapist arrival. Patient presented with increased agitation, taking several arm swings at nursing techn. Patient was moved via recliner chair to quiet room for treatment and once alone seemed to help her calm down a bit. Patient performed several sit to stand transfers with use of walker for standing support, Max A x 1, requiring verbal and tactile cues for upright posture. Patient ambulated 8'x 1, wh walker, Max A x 2, WBOS, demonstrating shuffling gait pattern before returning to recliner chair. Patient remained seated in semi reclined position, with lap try in place and body alarm for safety. Patient returned to activity room in recliner chair and remained under staff Supervision. Will continue per POC to improve safe transfers and moilbity as toelrated. Marques Bauer, COMPUTER NUMERICAL CONTROL MACHINIST
--- NOTE | 2017-10-16 10:00 | NUR ---
NURSE TO NURSE GIVEN TO SUSANNE ON PATIENT WITH UPDATES ON MEDICATION CHANGES, VITALS, ADL'S. ALL QUESTIONS ANSWERED. ADVANCE SCOUT WILL BE AT 1100.
--- NOTE | 2017-10-16 10:42 | NUR ---
PATIENT SEEN FOR OT THIS DATE 15 MINUTES. IDENTIFIED PATIENT BY NAME AND DATE OF . PATIENT COMPLETED SIT TO STAND PIERRE CHAIR MOD A X 2 WITH ASSISTANT CONTROLLER. PATIENT COMPLETED AMBULATION USE FWW WITH POOR SAFETY AWARENESS MAX A SHORT DISTANCE WITH CHAIR FOLLOW. ATTEMPTED TO FACILITATE AROM ACTIVITY INCLUDED BALL TOSS AND REACHING FOR STUFF ANIMALS WITH POOR PARTICIPATION AND PATIENT UNABLE TO FOLLOW SIMPLE ONE STEP COMMANDS. COMPLETED GROOMING TASK WIPING LIP WITH TOWEL PATIENT DEPENDENT TO COMPLETE. PATIENT SEATED IN PIERRE CHAIR WITH LAP TRAY AND ALARM IN PLACE FOR OPTIMAL SAFETY AND SEATED IN DAY ROOM. SHONDA SOTO
--- NOTE | 2017-10-16 11:44 | NUR ---
Goals/Exercise/Getting Rid of Stress Patient was in attendence for group this morning but did not participate. Patient was asleep in her chair
--- NOTE | 2017-10-16 12:41 | NUR ---
PT DISCHARGED TO [facility]IA [facility]. PT BELONGINGS SENT WITH PT.
--- NOTE | 2017-10-16 16:26 | NUR ---
PHYSICAL THERAPY CO-SIGN I approve of the Phyical Therapy notes written above. IRASEMA MONTOYA PT
== END 2017-10-16 12:35 | DRG 885 ==
LOC: 3N 17:11
PROVIDERS: Internal Medicine; ADMIT Psychiatry & Neurology Psychiatry
DX: F33.9 Major depressive disorder, recurrent, unspecified (principal); G30.8 Other Alzheimer's disease; F02.81 Dementia in other diseases classified elsewhere, unspecified severity, with behavioral disturbance; E78.5 Hyperlipidemia, unspecified; F63.9 Impulse disorder, unspecified; I25.10 Atherosclerotic heart disease of native coronary artery without angina pectoris; E55.9 Vitamin D deficiency, unspecified; K21.9 Gastro-esophageal reflux disease without esophagitis; Z96.659 Presence of unspecified artificial knee joint; F52.8 Other sexual dysfunction not due to a substance or known physiological condition; R26.2 Difficulty in walking, not elsewhere classified; R13.10 Dysphagia, unspecified; I10 Essential (primary) hypertension; Z88.5 Allergy status to narcotic agent; Z79.82 Long term (current) use of aspirin; Z79.899 Other long term (current) drug therapy